=== PATIENT | female | born 1965 | race Caucasian/White ===

== ENCOUNTER 2022-06-01 07:49 | Day surgery (SDC) | payer OTHER ==
[2022-05-31 11:22] LABS: COVID AG,FIA SOURCE NASAL SWAB
[~2022-06-01] VITALS: Ht 154.9 cm; Wt 181.8 kg
[~2022-06-01 07:49] MED LIST: FERR325T23 PO; GABA-1181 PO; HYDR200T4 PO; LEVO25TA9 PO; SENN-277 PO; SODIUM CHLORIDE 0.9% 1,000 ML IV ONE; SODIUM CHLORIDE 0.9% 1,000 ML ONE
[2022-06-01 08:31] LABS: GLUCOMETER DEV NAME(LOC) SDS.; GLUCOSE,POINT OF CARE 80 MG/DL (70-110)
[2022-06-01] MEDS ORDERED: LIDOCAINE/PF 2% 5 ML VIAL IM ONE (12:00)
[2022-06-01] MEDS ORDERED: PROPOFOL 1% 20 ML VIAL IVP ONE (12:00)
== END 2022-06-01 11:25 | disposition home or self-care (01) ==
LOC: SURGERY 07:49
PROVIDERS: ATTEND Internal Medicine Gastroenterology
DX: D64.9 Anemia, unspecified (principal); K64.1 Second degree hemorrhoids; K44.9 Diaphragmatic hernia without obstruction or gangrene; K20.90 Esophagitis, unspecified without bleeding; J45.909 Unspecified asthma, uncomplicated; Z98.890 Other specified postprocedural states; Z79.899 Other long term (current) drug therapy; Z72.89 Other problems related to lifestyle; Z20.822 Contact with and (suspected) exposure to COVID-19
CPT/HCPCS: 87426; 45378; 43239; 82962; C9803; C1769; J2704; J3490; J7030